=== PATIENT | male | born 1975 | race Caucasian/White ===

== ENCOUNTER 2017-10-24 12:59 | Inpatient (IN) | payer OTHER ==
[~2017-10-24] VITALS: Ht 188 cm; Wt 132.8 kg
--- NOTE | 2017-10-24 13:45 | EMERGENCY ROOM VISIT NOTE ---
History First contact with patient: 13:09 Chief Complaint: HYPERTENSION Stated Complaint: HYPERTENSION,DECREASED VISION IN L EYE History of Present Illness The patient is a 42 year old male who presents to the Emergency Room with complaints of intermittent lightheadedness, headache and loss of vision in his left eye that occurred 3 times over the last week. The first time, it occurred while the patient was working out. His symptoms lasted approximately half an hour and resolved. It happened again 2 days ago while he was getting out of the shower. It then happened again today. The patient currently denies any problems in vision. He does have a headache. The patient's blood pressure was taken at the facility and noted to be high. Patient denies any history of hypertension. He denies any chest pain, heart palpitations or difficulty breathing. He reports eating and drinking regularly. No weight gain. He denies any drug use. Review of Systems 10 system review performed and negative unless noted in HPI or below Past Medical/Surgical History Medical Problems: (1) CVA (cerebral vascular accident) Otherwise healthy Family History Hypertension, history of a bicuspid aortic valve Social History Smoking Status: Current Every Day Smoker Occupation Status: other Current/Historical Medications No Active Prescriptions or Reported Meds Physical Exam Vital Signs Date Time Temp Pulse Resp B/P (MAP) Pulse Ox O2 Delivery O2 Flow Rate FiO2 10/24/17 20:15 75 141/79 10/24/17 20:15 73 22 141/79 10/24/17 20:10 72 24 146/76 10/24/17 20:08 121/80 10/24/17 20:05 69 19 10/24/17 20:03 136/87 10/24/17 20:01 147/86 10/24/17 20:00 68 19 10/24/17 19:06 70 18 145/77 98 Room Air 10/24/17 17:33 68 10/24/17 17:27 71 18 145/88 98 Room Air 10/24/17 17:04 65 18 148/88 98 Room Air 10/24/17 15:20 66 18 134/74 98 Room Air 10/24/17 13:31 71 10/24/17 13:06 169/87 10/24/17 13:05 36.7 76 20 98 Room Air Physical Exam GENERAL: 42-year-old male, in no acute distress, nondiaphoretic, well-developed well-nourished. SKIN: The skin was without rashes, erythema, edema, or bruising. HEAD: Normocephalic atraumatic. EYES: Pupils equal round and reactive to light and accommodation. Conjunctivae without injection, sclerae without icterus. Extraocular movements intact. MOUTH: Mucous membranes moist. NECK: No carotid bruit auscultated bilaterally. No JVD. HEART: Regular rate and rhythm without murmurs gallops or rubs. LUNGS: Clear to auscultation bilaterally without wheezes, rales or rhonchi. No accessory muscle use. MUSCULOSKELETAL: No muscle atrophy, erythema, or edema noted. Strength 5/5 throughout. NEURO: Patient was alert and oriented to person place and time. Normal sensation to touch. No focal neurological deficits. Medical Decision & Procedures ER Provider Diagnostic Interpretation: MRI brain combo Patient Name: AYDEE GASPAR [id number] Unit Number: [id number] Dictated: 10/24/171655 Transcribed: 10/24/171655 SilMach Printed Date/Time: [~ rep prt dt]/[~ rep prt tm] [~ rep ct labl] - [~ rep ct ivnm] [facility] [place]iology [place] [address] Dictated: 10/24/171655 Transcribed: 10/24/171655 SilMach Printed Date/Time: [~ rep prt dt]/[~ rep prt tm] [~ rep ct labl] - [~ rep ct ivnm] 1. A 1 cm focus of restricted diffusion within the right medial temporal lobe. This is consistent with a small acute infarct. 2. Abnormal cortical signal and leptomeningeal enhancement within the right occipital lobe. This is nonspecific but given the patient's history of hypertension this favors posterior reversible encephalopathy syndrome (PRES). Additionally etiologies such as ischemia or meningitis could also have a similar appearance but are considered less likely. Clinical correlation recommended. Electronically signed by: Feliciano Olsen M.D. 10/24/2017 5:07 PM Dictated Date/Time: 10/24/2017 4:56 PM The status of this report is Signed. Draft = Not yet reviewed or approved by Radiologist. Signed = Reviewed and approved by Radiologist. <AttendingPhy></AttendingPhy> <FamilyPhy>[facility]</FamilyPhy> <PrimaryPhy> [facility]</PrimaryPhy> <UnitNumber>[id number]</UnitNumber> <VisitNumber> [id number]</VisitNumber> <PatientName>AYDEE GASPAR [id number]</PatientName> < DateOfBirth>1975</DateOfBirth> <Location>C.EDB</Location> <ServiceDate></ServiceDate> <MNE>ESINDI</MNE> <OrderingPhy>Wes, Rochelle Chava CARRILLO</ OrderingPhy> <OrderingPhyMNE>f rep ord dr guzman</OrderingPhyMNE> <DictatingPhyMNE> f rep dict dr guzman</DictatingPhyMNE> <CCListMNE>f rep ct mne</CCListMNE> < AdmittingPhyMNE>f pt admit dr guzman</AdmittingPhyMNE> <AttendingPhyMNE>f pt attend dr guzman</AttendingPhyMNE> <ConsultingPhyMNE>f pt consult dr guzman</ConsultingPhyMNE> <FamilyPhyMNE>f pt fam dr guzman</FamilyPhyMNE> <OtherPhyMNE>f pt other dr guzman</OtherPhyMNE> < PrimaryPhyMNE>f pt prim care dr guzman</PrimaryPhyMNE> <ReferringPhyMNE>f pt referring dr guzman</ReferringPhyMNE> CT head without contrast IMPRESSION: 1. No acute intracranial abnormality. Electronically signed by: Hernan William M.D. 10/24/2017 2:06 PM Dictated Date/Time: 10/24/2017 2:03 PM The status of this report is Signed. Draft = Not yet reviewed or approved by Radiologist. Signed = Reviewed and approved by Radiologist. <AttendingPhy></AttendingPhy> <FamilyPhy>[facility]</FamilyPhy> <PrimaryPhy> [facility]</PrimaryPhy> <UnitNumber>[id number]</UnitNumber> <VisitNumber> [id number]</VisitNumber> <PatientName>AYDEE GASPAR Dinora [id number]</PatientName> < DateOfBirth>1975</DateOfBirth> <Location>C.EDB</Location> <ServiceDate></ServiceDate> <MNE>ESINDI</MNE> <OrderingPhy>Rochelle Harvey LORENA</ OrderingPhy> <OrderingPhyMNE>f rep ord dr guzman</OrderingPhyMNE> <DictatingPhyMNE> f rep dict dr guzman</DictatingPhyMNE> <CCListMNE>f rep ct mne</CCListMNE> < AdmittingPhyMNE>f pt admit dr guzman</AdmittingPhyMNE> <AttendingPhyMNE>f pt attend dr guzman</AttendingPhyMNE> CXR IMPRESSION: No acute cardiopulmonary findings. Electronically signed by: Samir Herrera M.D. 10/24/2017 1:45 PM Dictated Date/Time: 10/24/2017 1:44 PM The status of this report is Signed. Draft = Not yet reviewed or approved by Radiologist. Signed = Reviewed and approved by Radiologist. Laboratory Results 10/24/17 13:35 Red Blood Count 4.96, Mean Corpuscular Volume 86.5, Mean Corpuscular Hemoglobin 30.4, Mean Corpuscular Hemoglobin Concent 35.2, Mean Platelet Volume 10.9, Neutrophils (%) (Auto) 54.8, Lymphocytes (%) (Auto) 35.1, Monocytes (%) (Auto) 6.4, Eosinophils (%) (Auto) 2.7, Basophils (%) (Auto) 0.8, Neutrophils # (Auto) 2.66, Lymphocytes # (Auto) 1.70, Monocytes # (Auto) 0.31, Eosinophils # (Auto) 0.13, Basophils # (Auto) 0.04 10/24/17 13:35 Test 10/24/17 13:35 10/24/17 14:22 10/24/17 19:56 10/24/17 20:17 White Blood Count 4.85 K/uL (4.8-10.8) Red Blood Count 4.96 M/uL (4.7-6.1) Hemoglobin 15.1 g/dL (14.0-18.0) Hematocrit 42.9 % (42-52) Mean Corpuscular Volume 86.5 fL (80-100) Mean Corpuscular Hemoglobin 30.4 pg (25-34) Mean Corpuscular Hemoglobin Concent 35.2 g/dl (32-36) Platelet Count 127 K/uL (130-400) Mean Platelet Volume 10.9 fL (7.4-10.4) Neutrophils (%) (Auto) 54.8 % Lymphocytes (%) (Auto) 35.1 % Monocytes (%) (Auto) 6.4 % Eosinophils (%) (Auto) 2.7 % Basophils (%) (Auto) 0.8 % Neutrophils # (Auto) 2.66 K/uL (1.4-6.5) Lymphocytes # (Auto) 1.70 K/uL (1.2-3.4) Monocytes # (Auto) 0.31 K/uL (0.11-0.59) Eosinophils # (Auto) 0.13 K/uL (0-0.5) Basophils # (Auto) 0.04 K/uL (0-0.2) RDW Standard Deviation 41.5 fL (36.4-46.3) RDW Coefficient of Variation 13.1 % (11.5-14.5) Immature Granulocyte % (Auto) 0.2 % Immature Granulocyte # (Auto) 0.01 K/uL (0.00-0.02) Anion Gap 7.0 mmol/L (3-11) Est Creatinine Clear Calc Drug Dose 156.4 ml/min Estimated GFR () 120.2 Estimated GFR (Non- 103.7 BUN/Creatinine Ratio 15.8 (10-20) Calcium Level 8.8 mg/dl (8.5-10.1) Total Bilirubin 0.3 mg/dl (0.2-1) Aspartate Amino Transf (AST/SGOT) 16 U/L (15-37) Alanine Aminotransferase (ALT/SGPT) 28 U/L (12-78) Alkaline Phosphatase 68 U/L (45-117) Troponin I < 0.015 ng/ml (0-0.045) Total Protein 7.2 gm/dl (6.4-8.2) Albumin 4.2 gm/dl (3.4-5.0) Globulin 3.0 gm/dl (2.5-4.0) Albumin/Globulin Ratio 1.4 (0.9-2) Thyroid Stimulating Hormone (TSH) 1.250 uIu/ml (0.300-4.500) Urine Color YELLOW Urine Appearance CLEAR (CLEAR) Urine pH 7.0 (4.5-7.5) Urine Specific [place] 1.014 (1.000-1.030) Urine Protein NEG (NEG) Urine Glucose (UA) NEG (NEG) Urine Ketones NEG (NEG) Urine Occult Blood NEG (NEG) Urine Nitrite NEG (NEG) Urine Bilirubin NEG (NEG) Urine Urobilinogen NEG (NEG) Urine Leukocyte Esterase NEG (NEG) Urine Opiates Screen NEG (NEG) Urine Methadone, Qualitative NEG (NEG) Urine Barbiturates NEG (NEG) Urine Phencyclidine (PCP) Level NEG (NEG) Ur Amphetamine/Methamphetamine NEG (NEG) MDMA (Ecstasy) Screen NEG (NEG) Urine Benzodiazepines Screen NEG (NEG) Urine Cocaine Metabolite NEG (NEG) Urine Marijuana (THC) NEG (NEG) Test 10/24/17 20:19 Medications Administered Medications (Trade) Dose Ordered Sig/Carlos Route Start Time Stop Time Status Last Admin Dose Admin Clonidine HCl (Bqxadodq-Oqy-1 0.2mg/24hr Patch) 1 patch ONE STAT TD 10/24/17 13:56 10/24/17 13:57 DC 10/24/17 14:21 1 PATCH Aspirin (Ecotrin Tab) 81 mg NOW STAT PO 10/24/17 17:20 10/24/17 17:21 DC 10/24/17 17:26 81 MG Labetalol HCl (Normodyne IV) 10 mg NOW STAT IV 10/24/17 19:30 10/24/17 19:42 DC 10/24/17 20:05 10 MG Hydralazine HCl (HydrALAZINE INJ) 10 mg NOW STAT IV. 10/24/17 19:30 10/24/17 19:42 DC 10/24/17 20:04 10 MG ECG Indication: other (HTN) Rate (beats per minute): 71 Rhythm: normal sinus Change: no significant change ED Course Patient was seen and examined Vital signs including blood pressure were reviewed medications list was verified with patient Labs were obtained, and a saline lock was established Imaging was performed A clonidine patch was applied Imaging was performed The patient was reassessed. His blood pressure was improved. We reviewed the results of his workup. He voiced understanding. The case was also discussed with my supervising physician who is in agreement with my plan. The patient was given 1 dose of aspirin 81 mg I reviewed discharge instructions the patient. They voiced understanding and had no further questions. Medical Decision Differential diagnosis: Hypertension, hypertensive urgency/emergency, intracranial abnormality, retinal abnormality This patient is a 42-year-old male that presents to the emergency department with visual defects, headache, lightheadedness and hypertension. On exam, he did not have any neurologic deficits today. His blood pressure was slightly elevated. He was given clonidine, with good relief. The patient's renal function is intact. His troponin is negative. EKG shows normal sinus rhythm with no signs of acute ischemia. Due to the visual disturbances, an MRI was ordered. This is consistent with an acute CVA. The patient is not a TPA candidate as his symptoms have been going on for 5 days. I do believe he needs to be admitted to the hospital for further workup and treatment. The patient is in agreement with this plan. Medication Reconcilliation Current Medication List: was personally reviewed by me Blood Pressure Screening Patient's blood pressure: Elevated blood pressure Impression Primary Impression: CVA (cerebral vascular accident) Departure Information Prescriptions No Active Prescriptions or Reported Meds Referrals New RODRIGUEZ (PCP) Patient Instructions My [facility]
--- NOTE | 2017-10-24 13:46 | DIAGNOSTIC IMAGING REPORT ---
CHEST ONE VIEW PORTABLE CLINICAL HISTORY: Hypertensive urgency. COMPARISON STUDY: No previous studies for comparison. FINDINGS: Lung volumes are normal. There is no pneumothorax or pleural effusion. There is no consolidation to suggest pneumonia. Pulmonary vascularity is normal. Cardiac size is within normal limits. Remainder of mediastinal contours are unremarkable. IMPRESSION: No acute cardiopulmonary findings. Electronically signed by: Samir Herrera M.D. 10/24/2017 1:45 PM Dictated Date/Time: 10/24/2017 1:44 PM
[2017-10-24] MEDS ORDERED: CLONIDINE HCL 0.2 MG/24 HR TRANSDERM SYS TD STA (13:56)
[2017-10-24 14:01] LABS: BASO % 0.8 %; BASO ABS # 0.04 K/uL (0-0.2); EOS % 2.7 %; EOS ABS # 0.13 K/uL (0-0.5); HEMATOCRIT 42.9 % (42-52); HEMOGLOBIN 15.1 g/dL (14.0-18.0); IG# 0.01 K/uL (0.00-0.02); LYMPH % 35.1 %; MEAN CELL VOLUME 86.5 fL (80-100); MEAN CORPUSCULAR HEMOGLOBIN 30.4 pg (25-34); MEAN CORPUSCULAR HGB CONC 35.2 g/dl (32-36); MEAN PLATELET VOLUME 10.9 fL (7.4-10.4); MONO % 6.4 %; MONO ABS # 0.31 K/uL (0.11-0.59); NEUT % 54.8 %; NEUT ABS # 2.66 K/uL (1.4-6.5); PLATELET COUNT 127 K/uL (130-400); RED CELL DISTRIBUTION WIDTH CV 13.1 % (11.5-14.5); RED CELL DISTRIBUTION WIDTH SD 41.5 fL (36.4-46.3); WHITE BLOOD COUNT 4.85 K/uL (4.8-10.8)
--- NOTE | 2017-10-24 14:07 | DIAGNOSTIC IMAGING REPORT ---
HEAD WITHOUT CONTRAST (CT) CLINICAL HISTORY: 42 years-old Male presenting with WHATLEY loss of vision L eye high BP. TECHNIQUE: Multidetector CT imaging of the head was performed without the use of intravenous contrast. IV contrast: None. A dose lowering technique was used consistent with the principles of ALARA (as low as reasonably achievable). COMPARISON: None. CT DOSE (mGy.cm): The estimated cumulative dose is 614.27 mGy.cm. FINDINGS: Chocolate Finisher topogram: Unremarkable. Ventricles and sulci normal in size. Brain parenchyma normal in appearance with preserved humphrey-white differentiation. No mass effect or midline shift. No hemorrhage or acute territorial infarct. No extra-axial fluid collection. Polypoid mucosal thickening in the left maxillary sinus.. Calvarium intact. IMPRESSION: 1. No acute intracranial abnormality. Electronically signed by: Hernan William M.D. 10/24/2017 2:06 PM Dictated Date/Time: 10/24/2017 2:03 PM
[2017-10-24 14:08] LABS: ALBUMIN 4.2 gm/dl (3.4-5.0); ALT/SGPT 28 U/L (12-78); AST/SGOT 16 U/L (15-37); BLOOD UREA NITROGEN 15 mg/dl (7-18); CALCIUM 8.8 mg/dl (8.5-10.1); CARBON DIOXIDE 24 mmol/L (21-32); CREATININE 0.92 mg/dl (0.60-1.40); GLUCOSE 84 mg/dl (70-99); POTASSIUM 3.8 mmol/L (3.5-5.1); SODIUM 139 mmol/L (136-145)
[2017-10-24 14:19] LABS: ALKALINE PHOSPHATASE 68 U/L (45-117); TOTAL PROTEIN 7.2 gm/dl (6.4-8.2)
--- NOTE | 2017-10-24 14:57 | DIAGNOSTIC IMAGING REPORT ---
ORBIT RADIOGRAPHS 3 VIEWS HISTORY: pre-MRI screening. COMPARISON: Head CT performed earlier today. FINDINGS: No orbital metallic foreign bodies are identified. IMPRESSION: No radiopaque foreign bodies identified within the orbits. Electronically signed by: Samir Herrera M.D. 10/24/2017 2:55 PM Dictated Date/Time: 10/24/2017 2:55 PM
[2017-10-24] MEDS ORDERED: GADAVIST IV PRN (17:00)
--- NOTE | 2017-10-24 17:08 | DIAGNOSTIC IMAGING REPORT ---
Brain MRI WITH AND WITHOUT CONTRAST HISTORY: Headache with vision loss L eye and half of right. HTN TECHNIQUE: Multiplanar multisequence MRI of the brain was performed both before and after the intravenous administration of contrast. COMPARISON STUDY: Head CT 10/24/2017. FINDINGS: There is a 1 cm focus of restricted diffusion within the right medial temporal lobe. This is consistent with a small acute infarct. Incidental is made of a partially empty sella. The remaining midline structures are intact. There are retention cysts within the left maxillary sinus. No fluid levels within the paranasal sinuses. Mild mucosal thickening within the left frontal sinus. The orbits are unremarkable. The ventricles are within normal limits. No mass, hematoma, midline shift. The major vascular flow voids at the skull base are well-maintained. Increased T2 signal within the cortex and subcortical locations of the right occipital lobe best seen on coronal FLAIR image 24. There is associated leptomeningeal enhancement seen within the right occipital lobe. This is best seen on image 8 of 23 of the axial postcontrast sequences. IMPRESSION: 1. A 1 cm focus of restricted diffusion within the right medial temporal lobe. This is consistent with a small acute infarct. 2. Abnormal cortical signal and leptomeningeal enhancement within the right occipital lobe. This is nonspecific but given the patient's history of hypertension this favors posterior reversible encephalopathy syndrome (PRES). Additionally etiologies such as ischemia or meningitis could also have a similar appearance but are considered less likely. Clinical correlation recommended. Electronically signed by: Feliciano Olsen M.D. 10/24/2017 5:07 PM Dictated Date/Time: 10/24/2017 4:56 PM
[2017-10-24] MEDS ORDERED: ASPIRIN 81 MG ECTAB PO STA ×2 (17:20→20:20)
[2017-10-24] MEDS ORDERED: LABETALOL HCL IV 5 MG/ML 20ML IV STA (19:30)
[2017-10-24] MEDS ORDERED: SODIUM CHLORIDE 0.9% 1000ML 1,000 ML IV SCH (19:30)
[2017-10-24] MEDS ORDERED: HydrALAZINE HCL 20 MG/ML VIAL IV. STA (19:30)
[2017-10-24] MEDS ORDERED: OPTIRAY 320 IV PRN (19:45)
[2017-10-24] MEDS ORDERED: ALUMINUM/MAGNESIUM/SIMETH (MAALOX MAX) 30 ML UDC PO PRN (20:30)
[2017-10-24] MEDS ORDERED: MAGNESIUM HYDROXIDE SUSP 30 ML UDC PO PRN (20:30)
[2017-10-24] MEDS ORDERED: ACETAMINOPHEN 325 MG TAB PO PRN (20:30)
[2017-10-24] MEDS ORDERED: ZOLPIDEM TARTRATE 5 MG TAB PO PRN (20:30)
[2017-10-24] MEDS ORDERED: POLYETHYLENE (MIRALAX) 17 GM PACK PO PRN (20:30)
--- NOTE | 2017-10-24 20:45 | DIAGNOSTIC IMAGING REPORT ---
ULTRASOUND R VENOUS DOPP LOWER EXT UNILAT CLINICAL HISTORY: Right leg swelling COMPARISON STUDY: No previous studies for comparison. FINDINGS: Real-time and color flow Doppler imaging were performed. Flow was seen within the femoral, popliteal and calf veins with no intraluminal thrombus demonstrated. The saphenous vein is patent. IMPRESSION: No evidence of right lower extremity DVT. Electronically signed by: Emmanuel Bernaeb M.D. 10/24/2017 8:44 PM Dictated Date/Time: 10/24/2017 8:44 PM
--- NOTE | 2017-10-24 20:49 | DIAGNOSTIC IMAGING REPORT ---
CT NECK ANGIO WITH CONTRAST CLINICAL HISTORY: Decreased vision in the left eye. Acute stroke. COMPARISON STUDY: MRI the brain dated 10/24/2017 TECHNIQUE: CT angiography was performed from the aortic arch to the skull base. MIP imaging was performed. The patient was scanned in a dynamic helical fashion during intravenous administration of 116 cc of Optiray 320. A dose lowering technique was utilized adhering to the principles of ALARA. CT DOSE: Technique: CT angiogram of the carotid and vertebral arteries was obtained using intravenous contrast and 3-D reconstruction. NASCET criteria was utilized. MIP imaging was also performed Findings: The right carotid revealed no evidence of aneurysm and no evidence of dissection. There is no evidence of hemodynamic significant stenosis. The left carotid revealed no evidence of hemodynamic significant stenosis. There is no evidence of aneurysm. There is no evidence of dissection. There is no evidence of hemodynamically significant vertebral stenosis. There is no evidence of vertebral dissection. IMPRESSION: No evidence of hemodynamically significant carotid or vertebral artery stenosis. No evidence of dissection. Electronically signed by: Emmanuel Bernabe M.D. 10/24/2017 8:48 PM Dictated Date/Time: 10/24/2017 8:44 PM
--- NOTE | 2017-10-24 20:53 | DIAGNOSTIC IMAGING REPORT ---
CT HEAD ANGIO WITH CONTRAST CLINICAL HISTORY: Decreased vision in the left eye. Stroke. TECHNIQUE: CT angiography of the head was performed in a dynamic helical fashion during intravenous administration of 116 cc of Optiray 320. A dose lowering technique was utilized adhering to the principles of ALARA. CT DOSE: 551.05 mGy.cm COMPARISON STUDY: MRI the brain dated 10/24/2017 FINDINGS: There are no lesion suspicious for aneurysm. There are no major intracranial branch occlusions. The dural venous sinuses appear patent. IMPRESSION: Normal study. Electronically signed by: Emmanuel Bernabe M.D. 10/24/2017 8:51 PM Dictated Date/Time: 10/24/2017 8:48 PM
[2017-10-24 21:18] VITALS: BP 154/95; PULSE 65; TEMP 37; O2SAT 98; Ht 188 cm; Wt 132.8 kg
[2017-10-24 21:19] LABS: CHOLESTEROL 165 mg/dl (0-200); LDL CHOLESTEROL CALCULATED 95 mg/dl
[2017-10-24] MEDS: HEPARIN SOD 5000 UNIT/0.5 ML CARP SQ SCH (21:48)
[2017-10-24] MEDS: SODIUM CHLORIDE 0.9% 1000ML 1,000 ML IV SCH (21:52)
[2017-10-24] MEDS: ASPIRIN 325 MG ECTAB PO SCH (21:52)
[2017-10-24] MEDS: ATORVASTATIN 40 MG TAB PO SCH (21:52)
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
[2017-10-25] VITALS (14 sets, daily range): BP systolic 124–147; BP diastolic 78–82; PULSE 58–69; TEMP 36.6–37; O2SAT 95–98
[2017-10-25] MEDS: HEPARIN SOD 5000 UNIT/0.5 ML CARP SQ SCH ×3 (06:08→19:54)
--- NOTE | 2017-10-25 07:22 | Medical Consult ---
Consultation Date of Consultation: Oct 25, 2017. Attending Physician: Chuck Garces MD Reason for Consultation: Multiple subcutaneous nodules History of Present Illness Patient is an inmate at [facility] who presented to the ED last night with a headache and multiple episodes of unilateral vision loss. MRI revealed an Acute right temporal CVA and possible right occipital ischemia. While in the ER, several subcutaneous nodules were appreciated on exam. Patient states that he has had these for approximately 1-2 months. He denies any associated pain or irritation with the masses. He does not recall anything in particular that brought them on. Denies any discoloration. Reports that he had one of these nodules removed at the residential but he has not heard anything about it since and does not believe the specimen was ever sent out for pathology. Denies fever, chills, recent weight loss. He has been started on SQ Heparin and Aspirin since his admission but denies regular use of any blood thinning or anticoagulant medications prior to this visit. Denies personal Hx of cancer. Social History Smoking Status: Current Every Day Smoker Occupation Status: other Allergies Coded Allergies: No Known Allergies (Unverified , 10/24/17) Current Inpatient Medications Current Inpatient Medications Medications (Trade) Dose Ordered Sig/Carlos Route Start Time Stop Time Status Last Admin Dose Admin Gadobutrol (Gadavist) 13 mmol UD PRN IV 10/24/17 17:00 10/28/17 16:59 Ioversol (Optiray 320) 100 ml UD PRN IV 10/24/17 19:45 10/28/17 19:44 Atorvastatin Calcium (Lipitor Tab) 40 mg QPM PO 10/24/17 21:45 11/23/17 21:44 10/24/17 21:52 40 MG Heparin Sodium (Porcine) (Heparin Sq 5000 Unit/0.5ml) 5,000 unit Q8 SQ 10/24/17 22:00 11/23/17 21:59 10/25/17 06:08 5,000 UNIT Sodium Chloride 1,000 ml @ 75 mls/hr [id number] IV 10/24/17 21:30 11/23/17 21:29 10/24/17 21:52 75 MLS/HR Acetaminophen (Tylenol Tab) 650 mg Q4H PRN PO 10/24/17 20:30 11/23/17 20:29 Al Hydrox/Mg Hydrox/Simethicone (Maalox Max Susp) 15 ml Q4H PRN PO 10/24/17 20:30 11/23/17 20:29 Magnesium Hydroxide (Milk Of Magnesia Susp) 30 ml Q12H PRN PO 10/24/17 20:30 11/23/17 20:29 Zolpidem Tartrate (Ambien Tab) 5 mg HSZ PRN PO 10/24/17 20:30 11/23/17 20:29 Aspirin (Ecotrin Tab) 325 mg QPM PO 10/24/17 21:00 11/23/17 20:59 10/24/17 21:52 325 MG Polyethylene (Miralax Powder Packet) 17 gm DAILY PRN PO 10/24/17 20:30 11/23/17 20:29 Review of Systems Constitutional: No fever, No chills, No sweats, No weight loss Abdomen: No nausea, No vomiting Integumentary: + new/changing skin lesions (Reports multiple subcutaneous nodules on his body and arms.), No rash, No itch, No color change Physical Exam Date Time Temp Pulse Resp B/P (MAP) Pulse Ox O2 Delivery O2 Flow Rate FiO2 10/25/17 05:42 69 16 95 Room Air 10/25/17 04:09 98 Room Air 10/25/17 04:00 36.7 68 17 127/78 (94) 98 Room Air 10/25/17 00:04 36.8 68 17 143/82 (102) 98 Room Air 10/25/17 00:00 98 Room Air 10/24/17 21:18 37.0 65 16 154/95 98 Room Air 10/24/17 20:15 75 141/79 10/24/17 20:15 73 22 141/79 10/24/17 20:10 72 24 146/76 10/24/17 20:08 121/80 10/24/17 20:05 69 19 10/24/17 20:03 136/87 10/24/17 20:01 147/86 10/24/17 20:00 68 19 10/24/17 19:06 70 18 145/77 98 Room Air 10/24/17 17:33 68 10/24/17 17:27 71 18 145/88 98 Room Air 10/24/17 17:04 65 18 148/88 98 Room Air 10/24/17 15:20 66 18 134/74 98 Room Air 10/24/17 13:31 71 10/24/17 13:06 169/87 10/24/17 13:05 36.7 76 20 98 Room Air General Appearance: WD/WN, no apparent distress Head: normocephalic, atraumatic Eyes: normal inspection Neck: trachea midline Respiratory/Chest: no respiratory distress, no accessory muscle use Neurologic/Psych: alert, normal mood/affect, oriented x 3 Skin: normal color, warm/dry, no rash, + pertinent finding (multiple firm, round, semi-mobile subcutaneous nodules appreciated on the anterior thorax, left upper arm and right anterior pelvis without TTP, redness, swelling or discharge noted. ) Laboratory Results Last 24 Hours Test 10/24/17 13:35 10/24/17 14:22 10/24/17 19:56 10/25/17 04:44 White Blood Count 4.85 K/uL Red Blood Count 4.96 M/uL Hemoglobin 15.1 g/dL Hematocrit 42.9 % Mean Corpuscular Volume 86.5 fL Mean Corpuscular Hemoglobin 30.4 pg Mean Corpuscular Hemoglobin Concent 35.2 g/dl Platelet Count 127 K/uL Mean Platelet Volume 10.9 fL Neutrophils (%) (Auto) 54.8 % Lymphocytes (%) (Auto) 35.1 % Monocytes (%) (Auto) 6.4 % Eosinophils (%) (Auto) 2.7 % Basophils (%) (Auto) 0.8 % Neutrophils # (Auto) 2.66 K/uL Lymphocytes # (Auto) 1.70 K/uL Monocytes # (Auto) 0.31 K/uL Eosinophils # (Auto) 0.13 K/uL Basophils # (Auto) 0.04 K/uL RDW Standard Deviation 41.5 fL RDW Coefficient of Variation 13.1 % Immature Granulocyte % (Auto) 0.2 % Immature Granulocyte # (Auto) 0.01 K/uL Sodium Level 139 mmol/L Potassium Level 3.8 mmol/L Chloride Level 108 mmol/L Carbon Dioxide Level 24 mmol/L Anion Gap 7.0 mmol/L Blood Urea Nitrogen 15 mg/dl Creatinine 0.92 mg/dl Est Creatinine Clear Calc Drug Dose 156.4 ml/min Estimated GFR () 120.2 Estimated GFR (Non- 103.7 BUN/Creatinine Ratio 15.8 Random Glucose 84 mg/dl Calcium Level 8.8 mg/dl Total Bilirubin 0.3 mg/dl Aspartate Amino Transf (AST/SGOT) 16 U/L Alanine Aminotransferase (ALT/SGPT) 28 U/L Alkaline Phosphatase 68 U/L Troponin I < 0.015 ng/ml Total Protein 7.2 gm/dl Albumin 4.2 gm/dl Globulin 3.0 gm/dl Albumin/Globulin Ratio 1.4 Thyroid Stimulating Hormone (TSH) 1.250 uIu/ml Urine Color YELLOW Urine Appearance CLEAR Urine pH 7.0 Urine Specific [place] 1.014 Urine Protein NEG Urine Glucose (UA) NEG Urine Ketones NEG Urine Occult Blood NEG Urine Nitrite NEG Urine Bilirubin NEG Urine Urobilinogen NEG Urine Leukocyte Esterase NEG Urine Opiates Screen NEG Urine Methadone, Qualitative NEG Urine Barbiturates NEG Urine Phencyclidine (PCP) Level NEG Ur Amphetamine/Methamphetamine NEG MDMA (Ecstasy) Screen NEG Urine Benzodiazepines Screen NEG Urine Cocaine Metabolite NEG Urine Marijuana (THC) NEG Erythrocyte Sedimentation Rate 2 mm/hr Prothrombin Time 11.0 SECONDS Prothromb Time International Ratio 1.0 C-Reactive Protein < 0.29 mg/dl Triglycerides Level 188 mg/dl Cholesterol Level 165 mg/dl HDL Cholesterol 32 mg/dl LDL Cholesterol, Calculated 95 mg/dl VLDL Cholesterol, Calculated 38 mg/dl Cholesterol/HDL Ratio 5.2 Assessment & Plan Multiple subcutaneous masses firm, round and semi-mobile. reasonable to consider excisional biopsy Findings discussed with Brooklynn Hartmann PA-C who will be covering today. Will discuss with Dr. Payan - excision at bedside vs. in OR. Please contact with questions or concerns.
[2017-10-25 07:27] LABS: BASO % 0.6 %; BASO ABS # 0.03 K/uL (0-0.2); EOS % 3.5 %; EOS ABS # 0.18 K/uL (0-0.5); HEMATOCRIT 42.4 % (42-52); IG# 0.01 K/uL (0.00-0.02); LYMPH ABS # 1.83 K/uL (1.2-3.4); MEAN CELL VOLUME 86.2 fL (80-100); MEAN CORPUSCULAR HEMOGLOBIN 30.5 pg (25-34); MEAN CORPUSCULAR HGB CONC 35.4 g/dl (32-36); MEAN PLATELET VOLUME 10.4 fL (7.4-10.4); MONO % 6.3 %; MONO ABS # 0.32 K/uL (0.11-0.59); NEUT % 53.4 %; NEUT ABS # 2.71 K/uL (1.4-6.5); PLATELET COUNT 122 K/uL (130-400); RED CELL DISTRIBUTION WIDTH CV 13.3 % (11.5-14.5); RED CELL DISTRIBUTION WIDTH SD 42.2 fL (36.4-46.3); WHITE BLOOD COUNT 5.08 K/uL (4.8-10.8)
[2017-10-25 07:54] LABS: ALBUMIN 3.8 gm/dl (3.4-5.0); CALCIUM 8.6 mg/dl (8.5-10.1); CREATININE 0.79 mg/dl (0.60-1.40); POTASSIUM 3.8 mmol/L (3.5-5.1)
[2017-10-25 07:57] LABS: TOTAL PROTEIN 6.5 gm/dl (6.4-8.2)
[2017-10-25 08:14] LABS: HEMOGLOBIN A1C 5.1 % (4.5-5.6)
--- NOTE | 2017-10-25 08:52 | Hospitalist Progress Note ---
Hospitalist Progress Note Date of Service Oct 25, 2017. Subjective Pt evaluation today including: conversation w/ family, physical exam, chart review, lab review, review of studies, review of inpatient medication list Pain: None PO Intake: Good Voiding: no voiding problems The patient was seen and examined this morning. Pt reports doing well. He has complaints of a throbbing headache which has been present since last Friday during the initial event where he lost vision x 20 minutes. He denies any other visual changes or loss of vision at this time. He denies any issues with mobility, speech or swallowing functions. Currently smokes 4-5 cigarettes per day, but has been cutting down. He has smoked for a total of 29 years. Pt is adamant on quitting due to new found stroke. He denies need for nicotine patch or prescription for chantix. Pt has been incarcerated since 2008 and anticipated release date is in 22 months. He follows with a PCP Dr. Voss in [facility]. ROS: 6 point ROS reviewed and is otherwise negative. Objective Vital Signs Date Time Temp Pulse Resp B/P (MAP) Pulse Ox O2 Delivery O2 Flow Rate FiO2 10/25/17 07:14 36.6 67 20 126/80 (95) 98 Room Air 10/25/17 05:42 69 16 95 Room Air 10/25/17 04:09 98 Room Air 10/25/17 04:00 36.7 68 17 127/78 (94) 98 Room Air 10/25/17 00:04 36.8 68 17 143/82 (102) 98 Room Air 10/25/17 00:00 98 Room Air 10/24/17 21:18 37.0 65 16 154/95 98 Room Air 10/24/17 20:15 75 141/79 10/24/17 20:15 73 22 141/79 10/24/17 20:10 72 24 146/76 10/24/17 20:08 121/80 10/24/17 20:05 69 19 10/24/17 20:03 136/87 10/24/17 20:01 147/86 10/24/17 20:00 68 19 10/24/17 19:06 70 18 145/77 98 Room Air 10/24/17 17:33 68 10/24/17 17:27 71 18 145/88 98 Room Air 10/24/17 17:04 65 18 148/88 98 Room Air 10/24/17 15:20 66 18 134/74 98 Room Air 10/24/17 13:31 71 10/24/17 13:06 169/87 10/24/17 13:05 36.7 76 20 98 Room Air Physical Exam General Appearance: WD/WN, no apparent distress, + obese, + pertinent finding ( very muscular, physically fit) Eyes: PERRL, EOMI ENT: hearing grossly normal, pharynx normal Neck: supple, no JVD Respiratory/Chest: chest non-tender, lungs clear, no respiratory distress, no accessory muscle use Cardiovascular: regular rate, rhythm, no murmur Abdomen: normal bowel sounds, non tender, soft Extremities: non-tender, no pedal edema, no calf tenderness Neurologic/Psychiatric: alert, normal mood/affect, oriented x 3 Skin: normal color, warm/dry Laboratory Results Last 24 Hours Test 10/24/17 13:35 10/24/17 14:22 10/24/17 19:56 10/25/17 07:14 White Blood Count 4.85 K/uL 5.08 K/uL Red Blood Count 4.96 M/uL 4.92 M/uL Hemoglobin 15.1 g/dL 15.0 g/dL Hematocrit 42.9 % 42.4 % Mean Corpuscular Volume 86.5 fL 86.2 fL Mean Corpuscular Hemoglobin 30.4 pg 30.5 pg Mean Corpuscular Hemoglobin Concent 35.2 g/dl 35.4 g/dl Platelet Count 127 K/uL 122 K/uL Mean Platelet Volume 10.9 fL 10.4 fL Neutrophils (%) (Auto) 54.8 % 53.4 % Lymphocytes (%) (Auto) 35.1 % 36.0 % Monocytes (%) (Auto) 6.4 % 6.3 % Eosinophils (%) (Auto) 2.7 % 3.5 % Basophils (%) (Auto) 0.8 % 0.6 % Neutrophils # (Auto) 2.66 K/uL 2.71 K/uL Lymphocytes # (Auto) 1.70 K/uL 1.83 K/uL Monocytes # (Auto) 0.31 K/uL 0.32 K/uL Eosinophils # (Auto) 0.13 K/uL 0.18 K/uL Basophils # (Auto) 0.04 K/uL 0.03 K/uL RDW Standard Deviation 41.5 fL 42.2 fL RDW Coefficient of Variation 13.1 % 13.3 % Immature Granulocyte % (Auto) 0.2 % 0.2 % Immature Granulocyte # (Auto) 0.01 K/uL 0.01 K/uL Sodium Level 139 mmol/L 140 mmol/L Potassium Level 3.8 mmol/L 3.8 mmol/L Chloride Level 108 mmol/L 109 mmol/L Carbon Dioxide Level 24 mmol/L 24 mmol/L Anion Gap 7.0 mmol/L 7.0 mmol/L Blood Urea Nitrogen 15 mg/dl 11 mg/dl Creatinine 0.92 mg/dl 0.79 mg/dl Est Creatinine Clear Calc Drug Dose 156.4 ml/min 181.0 ml/min Estimated GFR () 120.2 130.2 Estimated GFR (Non- 103.7 112.3 BUN/Creatinine Ratio 15.8 13.9 Random Glucose 84 mg/dl 92 mg/dl Calcium Level 8.8 mg/dl 8.6 mg/dl Total Bilirubin 0.3 mg/dl 0.3 mg/dl Aspartate Amino Transf (AST/SGOT) 16 U/L 14 U/L Alanine Aminotransferase (ALT/SGPT) 28 U/L 24 U/L Alkaline Phosphatase 68 U/L 66 U/L Troponin I < 0.015 ng/ml Total Protein 7.2 gm/dl 6.5 gm/dl Albumin 4.2 gm/dl 3.8 gm/dl Globulin 3.0 gm/dl 2.7 gm/dl Albumin/Globulin Ratio 1.4 1.4 Thyroid Stimulating Hormone (TSH) 1.250 uIu/ml Urine Color YELLOW Urine Appearance CLEAR Urine pH 7.0 Urine Specific [place] 1.014 Urine Protein NEG Urine Glucose (UA) NEG Urine Ketones NEG Urine Occult Blood NEG Urine Nitrite NEG Urine Bilirubin NEG Urine Urobilinogen NEG Urine Leukocyte Esterase NEG Urine Opiates Screen NEG Urine Methadone, Qualitative NEG Urine Barbiturates NEG Urine Phencyclidine (PCP) Level NEG Ur Amphetamine/Methamphetamine NEG MDMA (Ecstasy) Screen NEG Urine Benzodiazepines Screen NEG Urine Cocaine Metabolite NEG Urine Marijuana (THC) NEG Erythrocyte Sedimentation Rate 2 mm/hr Prothrombin Time 11.0 SECONDS Prothromb Time International Ratio 1.0 C-Reactive Protein < 0.29 mg/dl Triglycerides Level 188 mg/dl Cholesterol Level 165 mg/dl HDL Cholesterol 32 mg/dl LDL Cholesterol, Calculated 95 mg/dl VLDL Cholesterol, Calculated 38 mg/dl Cholesterol/HDL Ratio 5.2 Estimated Average Glucose 100 mg/dl Hemoglobin A1c 5.1 % Magnesium Level 2.1 mg/dl Assessment and Plan 42 yo athletic M, no PMHx with intermittent left hemianopsia and headache. MRI showed right medial temporal lobe lesion/ acute CVA and right occipital ischemia versus PRESS Also has multiple subcutaneous nodules that started about a month ago - 2 removed by physician at snf Acute right temporal CVA Possible right occipital ischemia, possible Posterior reversible encephalopathy syndrome - Admit to telemetry - no events overnight on tele - Follow hypercoagulable workup - in process - DVT studies negative - Check ECHO - awaiting results - Allow for permissive HTN - CRP normal, unlikely vasculitis. - CT angiogram of head and neck that did not show any dissection or aneurysm with pt history of heavy weight lifting - NSS at 75 mL/hr overnight, tolerating good PO intake- can d/c today - Continue Aspirin and statin - Lipid panel good except for high triglycerides, diet alteration discussed with the patient (should be on heart healthy when at snf) - hgb A1c = 5.1 - Neurology consulted- appreciate recommendations Hypertension - Allow permissive HTN as above Multiple subcutaneous nodules - Possible Skin cancer, or liposarcomas with hypercoagulable state metastasis, ordered surgical consult for excision and pathology Possible Severe sleep apnea - Obesity/thick neck/redundant soft palate large tongue, clinically suspected obstructive sleep apnea - O2 sats remained adequate overnight. Chronic Tobacco Use - Cessation of cigarette smoking discussed and pt adamant on quitting. DVT prophylaxis with heparin CODE: FULL Disposition: From [facility], anticipated d/c likely1-2 days
--- NOTE | 2017-10-25 09:16 | Surgery Progress Note ---
Surgery Progress Note Date of Service Oct 25, 2017. Subjective 42-year-old male- Patient is an inmate at [facility] who presented to the ED last night with a headache and multiple episodes of unilateral vision loss. MRI revealed an Acute right temporal CVA and possible right occipital ischemia. While in the ER, several subcutaneous nodules were appreciated on exam. Patient states that he has had these for approximately 1-2 months. He denies any associated pain or irritation with the masses. Patient has roughly 4-5 masses- one located mid-chest that causes him some mild discomfort when working out- if area is in contact with workout bench. Other masses are located on upper left extremity. No redness or drainage associated with masses. All non-tender with palpation. Objective Vital Signs: Date Time Temp Pulse Resp B/P (MAP) Pulse Ox O2 Delivery O2 Flow Rate FiO2 10/25/17 07:14 36.6 67 20 126/80 (95) 98 Room Air 10/25/17 05:42 69 16 95 Room Air 10/25/17 04:09 98 Room Air 10/25/17 04:00 36.7 68 17 127/78 (94) 98 Room Air 10/25/17 00:04 36.8 68 17 143/82 (102) 98 Room Air 10/25/17 00:00 98 Room Air 10/24/17 21:18 37.0 65 16 154/95 98 Room Air 10/24/17 20:15 75 141/79 10/24/17 20:15 73 22 141/79 10/24/17 20:10 72 24 146/76 10/24/17 20:08 121/80 10/24/17 20:05 69 19 10/24/17 20:03 136/87 10/24/17 20:01 147/86 10/24/17 20:00 68 19 10/24/17 19:06 70 18 145/77 98 Room Air 10/24/17 17:33 68 10/24/17 17:27 71 18 145/88 98 Room Air 10/24/17 17:04 65 18 148/88 98 Room Air 10/24/17 15:20 66 18 134/74 98 Room Air 10/24/17 13:31 71 10/24/17 13:06 169/87 10/24/17 13:05 36.7 76 20 98 Room Air General Appearance: WD/WN, no apparent distress Respiratory/Chest: no respiratory distress, no accessory muscle use Laboratory Results: Results Past 24 Hours Test 10/24/17 13:35 10/24/17 14:22 10/24/17 19:56 10/25/17 07:14 Range/Units White Blood Count 4.85 5.08 4.8-10.8 K/uL Red Blood Count 4.96 4.92 4.7-6.1 M/uL Hemoglobin 15.1 15.0 14.0-18.0 g/dL Hematocrit 42.9 42.4 42-52 % Mean Corpuscular Volume 86.5 86.2 80-100 fL Mean Corpuscular Hemoglobin 30.4 30.5 25-34 pg Mean Corpuscular Hemoglobin Concent 35.2 35.4 32-36 g/dl Platelet Count 127 122 130-400 K/uL Mean Platelet Volume 10.9 10.4 7.4-10.4 fL Neutrophils (%) (Auto) 54.8 53.4 % Lymphocytes (%) (Auto) 35.1 36.0 % Monocytes (%) (Auto) 6.4 6.3 % Eosinophils (%) (Auto) 2.7 3.5 % Basophils (%) (Auto) 0.8 0.6 % Neutrophils # (Auto) 2.66 2.71 1.4-6.5 K/uL Lymphocytes # (Auto) 1.70 1.83 1.2-3.4 K/uL Monocytes # (Auto) 0.31 0.32 0.11-0.59 K/uL Eosinophils # (Auto) 0.13 0.18 0-0.5 K/uL Basophils # (Auto) 0.04 0.03 0-0.2 K/uL RDW Standard Deviation 41.5 42.2 36.4-46.3 fL RDW Coefficient of Variation 13.1 13.3 11.5-14.5 % Immature Granulocyte % (Auto) 0.2 0.2 % Immature Granulocyte # (Auto) 0.01 0.01 0.00-0.02 K/uL Sodium Level 139 140 136-145 mmol/L Potassium Level 3.8 3.8 3.5-5.1 mmol/L Chloride Level 108 109 98-107 mmol/L Carbon Dioxide Level 24 24 21-32 mmol/L Anion Gap 7.0 7.0 3-11 mmol/L Blood Urea Nitrogen 15 11 7-18 mg/dl Creatinine 0.92 0.79 0.60-1.40 mg/dl Est Creatinine Clear Calc Drug Dose 156.4 181.0 ml/min Estimated GFR () 120.2 130.2 Estimated GFR (Non- 103.7 112.3 BUN/Creatinine Ratio 15.8 13.9 10-20 Random Glucose 84 92 70-99 mg/dl Calcium Level 8.8 8.6 8.5-10.1 mg/dl Total Bilirubin 0.3 0.3 0.2-1 mg/dl Aspartate Amino Transf (AST/SGOT) 16 14 15-37 U/L Alanine Aminotransferase (ALT/SGPT) 28 24 12-78 U/L Alkaline Phosphatase 68 66 45-117 U/L Troponin I < 0.015 0-0.045 ng/ml Total Protein 7.2 6.5 6.4-8.2 gm/dl Albumin 4.2 3.8 3.4-5.0 gm/dl Globulin 3.0 2.7 2.5-4.0 gm/dl Albumin/Globulin Ratio 1.4 1.4 0.9-2 Thyroid Stimulating Hormone (TSH) 1.250 0.300-4.500 uIu/ml Urine Color YELLOW Urine Appearance CLEAR CLEAR Urine pH 7.0 4.5-7.5 Urine Specific [place] 1.014 1.000-1.030 Urine Protein NEG NEG Urine Glucose (UA) NEG NEG Urine Ketones NEG NEG Urine Occult Blood NEG NEG Urine Nitrite NEG NEG Urine Bilirubin NEG NEG Urine Urobilinogen NEG NEG Urine Leukocyte Esterase NEG NEG Urine Opiates Screen NEG NEG Urine Methadone, Qualitative NEG NEG Urine Barbiturates NEG NEG Urine Phencyclidine (PCP) Level NEG NEG Ur Amphetamine/Methamphetamine NEG NEG MDMA (Ecstasy) Screen NEG NEG Urine Benzodiazepines Screen NEG NEG Urine Cocaine Metabolite NEG NEG Urine Marijuana (THC) NEG NEG Erythrocyte Sedimentation Rate 2 0-14 mm/hr Prothrombin Time 11.0 9.0-12.0 SECONDS Prothromb Time International Ratio 1.0 0.9-1.1 C-Reactive Protein < 0.29 0-0.29 mg/dl Triglycerides Level 188 0-150 mg/dl Cholesterol Level 165 0-200 mg/dl HDL Cholesterol 32 mg/dl LDL Cholesterol, Calculated 95 mg/dl VLDL Cholesterol, Calculated 38 mg/dl Cholesterol/HDL Ratio 5.2 Estimated Average Glucose 100 mg/dl Hemoglobin A1c 5.1 4.5-5.6 % Magnesium Level 2.1 1.8-2.4 mg/dl Assessment & Plan 42-year-old male admitted after MRI revealed an Acute right temporal CVA and possible right occipital ischemia. Gen Sx consulted for multiple lipomas Patient seen and examined with Dr. Payan. At this time, lipomas are not causing pain or discomfort- recommend leaving them alone. No indication for surgery. General Surgery will sign off at this time. Thank you.
[2017-10-25] MEDS ORDERED: PERFLUTREN LIPID MICROSPHERE (DEFINITY) IV ONE (10:10)
--- NOTE | 2017-10-25 10:20 | Neurology Consultation ---
Neurology Consultation Date of Consultation: Oct 25, 2017. Attending Physician: Chuck Garces MD Primary Care Physician: New RODRIGUEZ Reason for Consultation: Stroke History of Present Illness Source: patient, hospital records The patient is a 42-year-old male prisoner with a history of hypertension who presents with a chief complaint of vision loss to the left side. The symptom began acutely last weekend while working out. He had been squatting with over 400 pounds with a barbell across the back of his neck and trapezius muscles. He routinely performs heavyweight workouts several times per week. The duration of the vision loss was about 20 minutes. This past Friday, he experienced another similar episode. However, this episode occurred while he was taking a shower and was followed by an intense posterior headache. A third episode occurred yesterday prior to being brought to the emergency department for further evaluation. His blood pressure was elevated. He denies experiencing any associated weakness, sensory loss, or vertigo. She denies any neck pain. He denies any recent illnesses. A CT of the head was negative for hemorrhage or other acute process. Electrocardiogram revealed normal sinus rhythm, 71 bpm. I reviewed the images and reports of the subsequent brain MRI. The study was done with and without contrast. There is a small, acute, infarct within the medial right temporal lobe. There is also increased T2/FLAIR signal affecting the cortex and subcortical region of the right occipital lobe with some associated leptomeningeal enhancement on postcontrast sequences. CT angiography of the head and neck are unremarkable. Sedimentation rate 2. Family History There is a family history of hypertension Social History Occupation Status: other Allergies Coded Allergies: No Known Allergies (Unverified , 10/24/17) Current Inpatient Medications Current Inpatient Medications Medications (Trade) Dose Ordered Sig/Carlos Route Start Time Stop Time Status Last Admin Dose Admin Gadobutrol (Gadavist) 13 mmol UD PRN IV 10/24/17 17:00 10/28/17 16:59 Ioversol (Optiray 320) 100 ml UD PRN IV 10/24/17 19:45 10/28/17 19:44 Atorvastatin Calcium (Lipitor Tab) 40 mg QPM PO 10/24/17 21:45 11/23/17 21:44 10/24/17 21:52 40 MG Heparin Sodium (Porcine) (Heparin Sq 5000 Unit/0.5ml) 5,000 unit Q8 SQ 10/24/17 22:00 11/23/17 21:59 10/25/17 06:08 5,000 UNIT Sodium Chloride 1,000 ml @ 75 mls/hr [id number] IV 10/24/17 21:30 11/23/17 21:29 10/24/17 21:52 75 MLS/HR Acetaminophen (Tylenol Tab) 650 mg Q4H PRN PO 10/24/17 20:30 11/23/17 20:29 Al Hydrox/Mg Hydrox/Simethicone (Maalox Max Susp) 15 ml Q4H PRN PO 10/24/17 20:30 11/23/17 20:29 Magnesium Hydroxide (Milk Of Magnesia Susp) 30 ml Q12H PRN PO 10/24/17 20:30 11/23/17 20:29 Zolpidem Tartrate (Ambien Tab) 5 mg HSZ PRN PO 10/24/17 20:30 11/23/17 20:29 Aspirin (Ecotrin Tab) 325 mg QPM PO 10/24/17 21:00 11/23/17 20:59 10/24/17 21:52 325 MG Polyethylene (Miralax Powder Packet) 17 gm DAILY PRN PO 10/24/17 20:30 11/23/17 20:29 Review of Systems Constitutional: No fever or chills Neurological: As per history of present illness Cardiovascular: No chest pain or palpitations Physical Exam Vital Signs (Past 24 Hrs): Date Time Temp Pulse Resp B/P (MAP) Pulse Ox O2 Delivery O2 Flow Rate FiO2 10/25/17 08:00 98 Room Air 10/25/17 07:14 36.6 67 20 126/80 (95) 98 Room Air 10/25/17 05:42 69 16 95 Room Air 10/25/17 04:09 98 Room Air 10/25/17 04:00 36.7 68 17 127/78 (94) 98 Room Air 10/25/17 00:04 36.8 68 17 143/82 (102) 98 Room Air 10/25/17 00:00 98 Room Air 10/24/17 21:18 37.0 65 16 154/95 98 Room Air 10/24/17 20:15 75 141/79 10/24/17 20:15 73 22 141/79 10/24/17 20:10 72 24 146/76 10/24/17 20:08 121/80 10/24/17 20:05 69 19 10/24/17 20:03 136/87 10/24/17 20:01 147/86 10/24/17 20:00 68 19 10/24/17 19:06 70 18 145/77 98 Room Air 10/24/17 17:33 68 10/24/17 17:27 71 18 145/88 98 Room Air 10/24/17 17:04 65 18 148/88 98 Room Air 10/24/17 15:20 66 18 134/74 98 Room Air 10/24/17 13:31 71 10/24/17 13:06 169/87 10/24/17 13:05 36.7 76 20 98 Room Air The patient is a well-developed, well-nourished middle-aged male. He is alert and fully oriented. Recent and remote memory intact. Attention and concentration normal. Patient exhibits a normal spontaneous speech pattern as well as an age-appropriate fund of knowledge. Visual luna full to confrontation. Visual acuity normal. He was equal round reactive to light and accommodation. Eye movements normal. Facial sensation intact. There is normal facial symmetry and strength. Hearing intact. Palate elevates to midline. Shoulder shrug intact. Tongue protrudes to midline. Sensation intact in all 4 limbs. Deep tendon reflexes intact and symmetrical. Plantar responses downgoing bilaterally. There is no dysdiadochokinesia or dysmetria with finger to nose or heel to mariee bilaterally. Normal carotid pulses bilaterally, no bruits to auscultation. Muscle strength normal for the arms and legs bilaterally. Muscle tone normal throughout. No atrophy. No abnormal movements. Laboratory Results Past 24 Hours: 10/25/17 07:14 Red Blood Count 4.92, Mean Corpuscular Volume 86.2, Mean Corpuscular Hemoglobin 30.5, Mean Corpuscular Hemoglobin Concent 35.4, Mean Platelet Volume 10.4, Neutrophils (%) (Auto) 53.4, Lymphocytes (%) (Auto) 36.0, Monocytes (%) (Auto) 6.3, Eosinophils (%) (Auto) 3.5, Basophils (%) (Auto) 0.6, Neutrophils # (Auto) 2.71, Lymphocytes # (Auto) 1.83, Monocytes # (Auto) 0.32, Eosinophils # (Auto) 0.18, Basophils # (Auto) 0.03 10/25/17 07:14 Test 10/24/17 13:35 10/24/17 14:22 10/24/17 19:56 10/25/17 07:14 Troponin I < 0.015 ng/ml (0-0.045) Thyroid Stimulating Hormone (TSH) 1.250 uIu/ml (0.300-4.500) Urine Color YELLOW Urine Appearance CLEAR (CLEAR) Urine pH 7.0 (4.5-7.5) Urine Specific [place] 1.014 (1.000-1.030) Urine Protein NEG (NEG) Urine Glucose (UA) NEG (NEG) Urine Ketones NEG (NEG) Urine Occult Blood NEG (NEG) Urine Nitrite NEG (NEG) Urine Bilirubin NEG (NEG) Urine Urobilinogen NEG (NEG) Urine Leukocyte Esterase NEG (NEG) Urine Opiates Screen NEG (NEG) Urine Methadone, Qualitative NEG (NEG) Urine Barbiturates NEG (NEG) Urine Phencyclidine (PCP) Level NEG (NEG) Ur Amphetamine/Methamphetamine NEG (NEG) MDMA (Ecstasy) Screen NEG (NEG) Urine Benzodiazepines Screen NEG (NEG) Urine Cocaine Metabolite NEG (NEG) Urine Marijuana (THC) NEG (NEG) Erythrocyte Sedimentation Rate 2 mm/hr (0-14) Prothrombin Time 11.0 SECONDS (9.0-12.0) Prothromb Time International Ratio 1.0 (0.9-1.1) C-Reactive Protein < 0.29 mg/dl (0-0.29) Triglycerides Level 188 mg/dl (0-150) Cholesterol Level 165 mg/dl (0-200) HDL Cholesterol 32 mg/dl LDL Cholesterol, Calculated 95 mg/dl VLDL Cholesterol, Calculated 38 mg/dl Cholesterol/HDL Ratio 5.2 White Blood Count 5.08 K/uL (4.8-10.8) Red Blood Count 4.92 M/uL (4.7-6.1) Hemoglobin 15.0 g/dL (14.0-18.0) Hematocrit 42.4 % (42-52) Mean Corpuscular Volume 86.2 fL (80-100) Mean Corpuscular Hemoglobin 30.5 pg (25-34) Mean Corpuscular Hemoglobin Concent 35.4 g/dl (32-36) Platelet Count 122 K/uL (130-400) Mean Platelet Volume 10.4 fL (7.4-10.4) Neutrophils (%) (Auto) 53.4 % Lymphocytes (%) (Auto) 36.0 % Monocytes (%) (Auto) 6.3 % Eosinophils (%) (Auto) 3.5 % Basophils (%) (Auto) 0.6 % Neutrophils # (Auto) 2.71 K/uL (1.4-6.5) Lymphocytes # (Auto) 1.83 K/uL (1.2-3.4) Monocytes # (Auto) 0.32 K/uL (0.11-0.59) Eosinophils # (Auto) 0.18 K/uL (0-0.5) Basophils # (Auto) 0.03 K/uL (0-0.2) RDW Standard Deviation 42.2 fL (36.4-46.3) RDW Coefficient of Variation 13.3 % (11.5-14.5) Immature Granulocyte % (Auto) 0.2 % Immature Granulocyte # (Auto) 0.01 K/uL (0.00-0.02) Anion Gap 7.0 mmol/L (3-11) Est Creatinine Clear Calc Drug Dose 181.0 ml/min Estimated GFR () 130.2 Estimated GFR (Non- 112.3 BUN/Creatinine Ratio 13.9 (10-20) Estimated Average Glucose 100 mg/dl Hemoglobin A1c 5.1 % (4.5-5.6) Calcium Level 8.6 mg/dl (8.5-10.1) Magnesium Level 2.1 mg/dl (1.8-2.4) Total Bilirubin 0.3 mg/dl (0.2-1) Aspartate Amino Transf (AST/SGOT) 14 U/L (15-37) Alanine Aminotransferase (ALT/SGPT) 24 U/L (12-78) Alkaline Phosphatase 66 U/L (45-117) Total Protein 6.5 gm/dl (6.4-8.2) Albumin 3.8 gm/dl (3.4-5.0) Globulin 2.7 gm/dl (2.5-4.0) Albumin/Globulin Ratio 1.4 (0.9-2) Impression Small ischemic infarct to the medial right temporal lobe. Suspected PRES affecting the right occipital lobe. No signs or symptoms suggestive of meningitis. Resolved left homonymous hemianopsia. The above imaging abnormalities are likely consistent with right LINING PRINTER territory ischemia. I believe heavy barbell squatting and hypertension are pertinent risk factors in this patient's case. There is no evidence of vascular occlusion or dissection on CT angiography of the head or neck. His EKG reveals a normal sinus rhythm. Plan Follow-up with results of echocardiography when available. Patient should continue with aspirin 81 mg per day at time of discharge unless an indication for anticoagulation is found. Continue medical management of hypertension. Current blood pressure is appropriate. Would obtain a repeat brain MRI with and without contrast in 2 weeks to ensure resolution of the right occipital lobe PRES. Please contact me if I may be of further assistance.
[2017-10-25] MEDS: SODIUM CHLORIDE 0.9% 1000ML 1,000 ML IV SCH (12:03)
--- NOTE | 2017-10-25 15:06 | ECHOCARDIOGRAM REPORT ---
*NOTICE TO RECEIVING LIBERTARIAN AGENCY This information is strictly Confidential and protected under [place] law. [place] law prohibits you from making any further disclosure of this information unless further disclosure is expressly permitted by the written consent of the person to whom it pertains or is authorized by law. A general authorization for the release of medical or other information is not sufficient for this purpose. Hospital accepts no responsibility if the information is made available to any other person, INCLUDING THE PATIENT. Interpretation Summary * Name: AYDEE GASPAR [id number] Study Date: 10/25/2017 09:38 AM BP: 127/78 mmHg * Patient Location: 221 HR: 66 * : 1975 (M/d/yyyy) Gender: Male Height: 74 in * Age: 42 yrs Ethnicity: CA Weight: 298 lb * Ordering Physician: Chuck Garces * Referring Physician: Self, Referred * Performed By: Terry Guerrero RDCS * * Reason For Study: CVA * BSA: 2.6 m2 * -- Conclusions -- * The left ventricle is normal in size. * There is mild concentric left ventricular hypertrophy. * Left ventricular systolic function is normal. * Ejection Fraction = 65-70%. * The left ventricular wall motion is normal. * The right ventricular cavity size is enlarged (proximal parasternal long axis right ventricular outflow tract dimension >3.3 cm). * The right ventricular systolic function is normal as assessed by tricuspid annular plane systolic excursion (TAPSE) (normal >1.5 cm). * PA pressures could not be assessed. * Dilated inferior vena cava with reduced collapsability with sniff indicates an elevated right atrial pressure of 15 mmHg Procedure Details * A complete two-dimensional transthoracic echocardiogram was performed (2D, M-mode, Doppler and color flow Doppler). * The study was technically difficult, but visualization was adequate with the administration of Definity ultrasound contrast. * A contrast injection of Definity was performed to improve assessment of LV function. * Contrast was injected into an intravenous site in the right arm. * One vial of Definity ultrasound contrast was diluted in normal saline to a total volume of 10 ml. A total of '3' ml of solution was administered during imaging. * Lot # [id number] of Definity utilized for procedure. * Expiration date . * The attending nurse who injected the contrast agent was ERNESTINE Stiles. * A saline contrast injection was performed to assess for cardiac shunting. * The injection was performed through an intravenous line in the right arm. * The attending nurse who injected the saline contrast was ERNESTINE Stiles. * A total of 10 cc of agitated saline was given. Left Ventricle * The left ventricle is normal in size. * There is mild concentric left ventricular hypertrophy. * Left ventricular systolic function is normal. * Ejection Fraction = 65-70%. * The left ventricular wall motion is normal. Right Ventricle * The right ventricular cavity size is enlarged (proximal parasternal long axis right ventricular outflow tract dimension >3.3 cm). * The right ventricular systolic function is normal as assessed by tricuspid annular plane systolic excursion (TAPSE) (normal >1.5 cm). Atria * The left atrial size is normal. * Right atrial size is normal. Mitral Valve * The mitral valve leaflets appear normal. There is no evidence of stenosis, fluttering, or prolapse. * There is no mitral regurgitation noted. Tricuspid Valve * The tricuspid valve is not well visualized, but is grossly normal. * There is trace tricuspid regurgitation. * PA pressures could not be assessed. Aortic Valve * The aortic valve is trileaflet. Pulmonic Valve * The pulmonic valve is not well seen, but is grossly normal. Great Vessels * The aortic root is normal size. Pericardium/Pleural * There is no pericardial effusion. Great Vessels * Dilated inferior vena cava with reduced collapsability with sniff indicates an elevated right atrial pressure of 15 mmHg Left Ventricular Diastolic Function * Probably normal diastolic function MMode 2D Measurements and Calculations IVSd 1.3 cm IVSs 1.8 cm LVIDd 5.2 cm LVIDs 3.2 cm LVPWd 1.2 cm LVPWs 1.8 cm IVS/LVPW 1.1 FS 39.9 % EDV(Teich) 132.3 ml ESV(Teich) 39.5 ml EF(Teich) 70.2 % EDV(cubed) 144.6 ml ESV(cubed) 31.3 ml EF(cubed) 78.3 % % IVS thick 33.7 % % LVPW thick 49.4 % LV mass(C)d 273.6 grams LV mass(C)dI 106.3 grams/m\S\2 LV mass(C)s 229.2 grams LV mass(C)sI 89.0 grams/m\S\2 SV(Teich) 92.8 ml SI(Teich) 36.1 ml/m\S\2 SV(cubed) 113.3 ml SI(cubed) 44.0 ml/m\S\2 Ao root diam 3.6 cm Ao root area 10.3 cm\S\2 ACS 2.3 cm LA dimension 4.5 cm asc Aorta Diam 3.1 cm LA/Ao 1.3 LVOT diam 2.0 cm LVOT area 3.3 cm\S\2 LVAd ap4 38.9 cm\S\2 LVLd ap4 8.7 cm EDV(MOD-sp4) 143.6 ml EDV(sp4-el) 148.1 ml LVAs ap4 17.9 cm\S\2 LVLs ap4 7.7 cm ESV(MOD-sp4) 35.8 ml ESV(sp4-el) 35.2 ml EF(MOD-sp4) 75.1 % EF(sp4-el) 76.2 % LVAd ap2 39.4 cm\S\2 LVLd ap2 8.5 cm EDV(MOD-sp2) 152.1 ml EDV(sp2-el) 155.0 ml LVAs ap2 17.7 cm\S\2 LVLs ap2 6.6 cm ESV(MOD-sp2) 39.4 ml ESV(sp2-el) 40.0 ml EF(MOD-sp2) 74.1 % EF(sp2-el) 74.2 % LVLd %diff -2.13 % EDV(MOD-bp) 150.2 ml LVLs %diff -16.09 % ESV(MOD-bp) 39.3 ml EF(MOD-bp) 73.8 % SV(MOD-sp4) 107.9 ml SI(MOD-sp4) 41.9 ml/m\S\2 SV(MOD-sp2) 112.7 ml SI(MOD-sp2) 43.8 ml/m\S\2 SV(MOD-bp) 110.9 ml SI(MOD-bp) 43.1 ml/m\S\2 SV(sp4-el) 112.8 ml SI(sp4-el) 43.8 ml/m\S\2 SV(sp2-el) 115.0 ml SI(sp2-el) 44.7 ml/m\S\2 Doppler Measurements and Calculations MV E max hector 92.3 cm/sec MV A max hector 61.4 cm/sec MV E/A 1.5 MV dec time 0.17 sec Ao V2 max 138.9 cm/sec Ao max PG 7.7 mmHg Ao max PG (full) 2.7 mmHg JONAH(V,A) 2.6 cm\S\2 JONAH(V,D) 2.6 cm\S\2 LV V1 max PG 5.0 mmHg LV V1 max 112.1 cm/sec PA V2 max 101.8 cm/sec PA max PG 4.2 mmHg
[2017-10-25] MEDS ORDERED: OPTIRAY 320 IV PRN (15:45)
--- NOTE | 2017-10-25 15:56 | DIAGNOSTIC IMAGING REPORT ---
CHEST, ABDOMEN, AND PELVIS CT WITH CONTRAST CT DOSE: 2012.85 mGy.cm HISTORY: lump in epigastric area subcutaneous tissue, possible underlying cancer TECHNIQUE: Multiaxial CT images of the chest, abdomen, and pelvis were performed following the intravenous administration of contrast. Oral contrast was also administered. A dose lowering technique was utilized adhering to the principles of ALARA. COMPARISON: None. FINDINGS: The heart is normal in size. No pleural effusions. No mediastinal or hilar lymphadenopathy. The main pulmonary arteries are patent. Normal caliber thoracic aorta. The thyroid gland enhances normally. No soft tissue masses within the anterior chest wall. No suspicious lytic or blastic osseous lesions. No pneumothorax. The central airways are patent. No focal lung consolidations. No suspicious pulmonary nodules. No pneumoperitoneum. No pneumatosis. No suspicious lytic or blastic osseous lesions within the visualized structures of the abdomen or pelvis. No subcutaneous soft tissue masses within the epigastric location. A 1.3 cm lesion within the left hepatic lobe which demonstrates discontinuous peripheral nodular enhancement with delayed filling. Therefore, this favors a hemangioma. The gallbladder, pancreas, spleen, and adrenal glands are unremarkable. No retroperitoneal lymphadenopathy. Normal bladder. No hydronephrosis. Subcentimeter hypodense lesions within each kidney with the largest on the right measuring 8 mm. These are too small to characterize. Tiny fat-containing umbilical hernia. No bowel wall thickening or obstruction. Normal appendix. IMPRESSION: 1. No significant abnormality identified within the chest, abdomen, or pelvis. 2. Specifically there are no epigastric abdominal wall soft tissue masses identified. 3. A 1.3 cm lesion within the left hepatic lobe which likely represents a hemangioma. Electronically signed by: Feliciano Olsen M.D. 10/25/2017 3:54 PM Dictated Date/Time: 10/25/2017 3:46 PM
[2017-10-25] MEDS: ASPIRIN 325 MG ECTAB PO SCH (19:52)
[2017-10-25] MEDS: ATORVASTATIN 40 MG TAB PO SCH (19:52)
[2017-10-26 00:17] VITALS: O2SAT 96
[2017-10-26] MEDS: SODIUM CHLORIDE 0.9% 1000ML 1,000 ML IV SCH ×2 (03:56→13:30)
[2017-10-26 04:09] VITALS: BP 116/72; PULSE 58; TEMP 36.4; O2SAT 97
[2017-10-26 04:14] VITALS: O2SAT 96
[2017-10-26] MEDS: HEPARIN SOD 5000 UNIT/0.5 ML CARP SQ SCH ×2 (05:16→13:48)
[2017-10-26 07:14] VITALS: BP 117/75; PULSE 60; TEMP 36.6; O2SAT 97
[2017-10-26] MEDS ORDERED: ASPI81TA28 OR (07:54)
[2017-10-26] MEDS ORDERED: LPT40 PO (07:54)
--- NOTE | 2017-10-26 07:57 | Discharge Instructions ---
Discharge Instructions Date of Service Oct 26, 2017. 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 Discharge Goals Goal(s): Decrease discomfort, Improve function, Increase independence, Improve disease control, Diagnostic testing, Therapeutic intervention, Prevent Disease Progression Activity Recommendations Activity Limitations: resume your previous activity . Instructions / Follow-Up Instructions / Follow-Up Risk Factors for Stroke: You can reduce your chances of stroke by working with your medical provider to adopt a healthy lifestyle. Some specific ways to lower your chance of stroke are: * If you are a smoker, now is the time to stop smoking cigarettes * If you are diabetic, improve the control of your blood sugars * Avoid excessive amounts of alcohol * Control high blood pressure * Lose weight if you are overweight * Be sure to lead an active lifestyle * Eat a healthy diet low in salt, cholesterol and fat You should know about other risk factors for stroke that you are unable to control. These include: * Age 55 years or older * Male gender * Certain racial groups: , or / * Family History of Stroke, Mini stroke or Heart Attack * Sickle Cell Disease Follow Up: It is important for you to keep your follow up appointments with your medical provider. Current Hospital Diet Patient's current hospital diet: Regular Diet Discharge Diet Recommended Diet: AHA Diet (Heart Healthy) Procedures Procedures Performed: none Pending Studies Studies pending at discharge: yes List of pending studies: hypercoagubale workup pending Laboratory Results Hemoglobin A1c Test 10/25/17 07:14 Range/Units Estimated Average Glucose 100 mg/dl Hemoglobin A1c 5.1 4.5-5.6 % Lipid Panel Test 10/24/17 19:56 Range/Units Triglycerides Level 188 H 0-150 mg/dl Cholesterol Level 165 0-200 mg/dl HDL Cholesterol 32 mg/dl Cholesterol/HDL Ratio 5.2 LDL Cholesterol, Calculated 95 mg/dl Medical Emergencies . Who to Call and When: Medical Emergencies: Call 911 immediately if you experience any of the following warning signs and symptoms of Stroke: * Sudden numbness or weakness of the face, arm or leg, especially on one side of the body * Sudden confusion, trouble speaking or understanding * Sudden trouble seeing in one or both eyes * Sudden trouble walking, dizziness, loss of balance or coordination * Sudden severe headache with no cause Do not delay calling 911 if you experience any warning signs or symptoms of a stroke. Delay in seeking medical attention may affect what treatments can be given to you. . Non-Emergent Contact Non-Emergency issues call your: Primary Care Provider Call Non-Emergent contact if: temperature is above 101, your pain is not controlled . . "Provider Documentation" section prepared by Segundo Freeman . Stroke Core Measures Reason no t-PA for Stroke: Treatment not indicated Reason no antithrom by day 2: Treatment provided - N/A Reason no antithrom at D/C: Treatment provided - N/A Reason no statin at D/C: Treatment provided - N/A Reason no anticoag w/a fib: Treatment provided - N/A VTE Core Measure Inpt VTE Proph given/why not?: Unfractionated heparin SQ
[2017-10-26 08:00] VITALS: O2SAT 95
--- NOTE | 2017-10-26 08:15 | Discharge Summary ---
Discharge Summary Date of Service Oct 26, 2017. 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 CVA Problems/Secondary Diagnoses: HTN Consultations: Neurology Medication Reconciliation New Medications: Aspirin (Aspirin Ec) 81 Mg Tab 81 MG OR DAILY for 30 Days, #30 Atorvastatin (Atorvastatin Calcium) 40 Mg Tab 40 MG PO QPM for 30 Days, #30 TAB Referrals At Discharge Follow up Referrals: Neurologist Referral - Within 1-2 Weeks @ [facility] with Dax Barton M.D. 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 Discharge Exam Review of Systems: Constitutional: No fever, No chills, No sweats, No weight loss, No weakness , No fatigue Eyes: No worsening of vision, No eye pain ENT: No hearing loss Respiratory: No cough, No sputum, No shortness of breath, No dyspnea at rest , No hemoptysis Cardiovascular: No chest pain, No orthopnea, No edema, No palpitations Abdomen: No pain, No nausea, No vomiting, No GI bleeding Genitourinary - Male: No dysuria, No urinary frequency, No urinary urgency, No urinary hesitancy, No urinary retention, No urinary incontinence Psychiatric: No depression symptoms Endocrine: No fatigue Hematologic / Lymphatic: No abnormal bleeding/bruising Integumentary: No rash Physical Exam: General Appearance: WD/WN, no apparent distress Eyes: normal inspection, EOMI ENT: hearing grossly normal Neck: supple Respiratory/Chest: lungs clear, normal breath sounds, no respiratory distress, no accessory muscle use Cardiovascular: regular rate, rhythm, no edema, no murmur Abdomen / GI: normal bowel sounds, non tender, soft Neurologic/Psychiatric: 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 The symptom began acutely last weekend while working out. He had been squatting with over 400 pounds with a barbell across the back of his neck and trapezius muscles. He routinely performs heavyweight workouts several times per week. The duration of the vision loss was about 20 minutes. This past Friday, he experienced another similar episode. However, this episode occurred while he was taking a shower and was followed by an intense posterior headache. A third episode occurred yesterday prior to being brought to the emergency department for further evaluation. His blood pressure was elevated. He denies experiencing any associated weakness, sensory loss, or vertigo. She denies any neck pain. He denies any recent illnesses. A CT of the head was negative for hemorrhage or other acute process. Electrocardiogram revealed normal sinus rhythm, 71 bpm. Neurology consult obtained and his MRI reviewed.There is a small, acute, infarct within the medial right temporal lobe. There is also increased T2/FLAIR signal affecting the cortex and subcortical region of the right occipital lobe with some associated leptomeningeal enhancement on postcontrast sequences. CT angiography of the head and neck are unremarkable. Sedimentation rate 2. Patient did well no residual deficits identified at the time of discharge. Pt/ ot evaluation before discharge. No dysphagia to food speech is cleared.Pat need a close follow with neurology in 2 weeks with repeat MRI. Please refer to neurology consult for detailed. We will discharge him on daily aspirin and statin. I will leave his BP management in hand of his primary care. Total Time Spent: Greater than 30 minutes This includes examination of the patient, discharge planning, medication reconciliation, and communication with other providers. Discharge Instructions Please refer to the electronic Patient Visit Report (Discharge Instructions) for additional information. Follow-Up Neurology Additional Copies To Dax Barton M.D.
[2017-10-26 10:36] VITALS: BP 151/83; PULSE 71; TEMP 37; O2SAT 97
[2017-10-30 15:31] LABS: ANTICARDIOLIPID AB IGA <11 APL (< = 11)
== END 2017-10-26 13:53 | disposition home or self-care (01) | DRG 64 ==
LOC: C.EDB 13:01 → C.2T 20:28 → ENRESERV 20:32
PROVIDERS: ADMIT Internal Medicine; ATTEND Internal Medicine
DX: I63.8 Other cerebral infarction (principal); I67.83 Posterior reversible encephalopathy syndrome; H53.47 Heteronymous bilateral field defects; I10 Essential (primary) hypertension; F17.210 Nicotine dependence, cigarettes, uncomplicated; R22.2 Localized swelling, mass and lump, trunk; E66.9 Obesity, unspecified; G47.33 Obstructive sleep apnea (adult) (pediatric); Z68.37 Body mass index [BMI] 37.0-37.9, adult